=== PATIENT | male | born 1970 | race Caucasian/White ===

== ENCOUNTER 2018-04-23 21:10 | Observation (INO) ==
[2018-04-23 21:58] LABS: Bilirubin,Urine Moderate (Negative); Blood,Urine Negative (Negative); Clarity,Urine Clear (Clear); Color,Urine Yellow (Yellow); Glucose,Urine (UA) Normal (Normal); Ketones,Urine Negative (Negative); Leukocyte Esterase,Urine Small (Negative); Nitrite,Urine Negative (Negative); PH,Urine 5.5 pH Units (5.0-8.0); Protein,Urine Trace mg/dL (Neg-Trace); Specific Gravity,Urine 1.024 (1.010-1.025); Urobilinogen,Urine Normal (Normal)
[2018-04-23 22:00] LABS: Bacteria,Urine None Seen per hpf (None-Few); Hyaline Casts,Urine None Seen per lpf (None-Few); Squamous Epithelial Cell,Urine Many per lpf (None-Few)
[2018-04-23 22:11] LABS: Basophils # 0.1 K/mcL (0.0-0.2); Basophils % 0.6 %; Eosinophils # 0.2 K/mcL (0.0-0.6); Eosinophils % 2.1 %; Hematocrit 42.2 % (37.5-50.1); Hemoglobin 14.3 g/dL (12.9-16.9); Immature Granulocytes % 0.3 % (0-4); Lymphocytes # 3.1 K/mcL (0.6-4.6); Lymphocytes % 31.8 %; Mean Corpuscular HGB Conc 33.9 g/dL (31.6-35.5); Mean Corpuscular Volume 94.4 fL (83.0-100.0); Mean Platelet Volume 11.2 fL (9.4-12.4); Monocytes # 0.8 K/mcL (0.0-1.3); Monocytes % 8.3 %; Neutrophils # 5.6 K/mcL (1.6-8.9); Platelet Count 282 K/mcL (140-400); Red Blood Count 4.47 M/mcL (4.19-5.50); Red Cell Distribution Width 11.8 % (11.5-14.5); Segmented Neutrophils % 56.9 %
[2018-04-23 22:33] LABS: BUN/Creatinine Ratio 23 (6-26); Blood Urea Nitrogen 26 mg/dL (6-20); Calcium 9.6 mg/dL (8.6-10.3); Carbon Dioxide 28 mEq/L (23-29); Chloride 102 mEq/L (98-107); Glucose 118 mg/dL (70-105); Osmolality,Calculated 298 (280-300); Potassium 4.1 mEq/L (3.5-5.1); Sodium 141 mEq/L (136-145); eGFR For African Americans > 60 (> 60); eGFR For Non-African Americans > 60 (> 60)
[2018-04-23] MEDS ORDERED: Ondansetron 4 MG/2 ML VIAL IVP ONE (22:35)
[2018-04-23] MEDS ORDERED: Ketorolac 15 MG/ML VIAL IVP ONE (22:35)
--- NOTE | 2018-04-23 22:37 | Emergency Department Note ---
Disposition Clinical Impression: Calculus of kidney, Ureterolithiasis, Intractable pain Disposition: Admitted As Inpatient Condition: Fair Referrals: Fernando Lozano MD [Primary Care Provider] - Forms: ED Satisfaction Letter, Work/School Release Time of Disposition: 00:36 Abdominal Pain HPI - General Chief Complaint: ED Abdominal Pain Stated Complaint: kidney stones Time Seen by Provider: 04/23/18 21:50 Source: patient Mode of arrival: ambulatory Limitations: no limitations Nursing Notes Reviewed: Yes Vital Signs Reviewed: Yes - History of Present Illness HPI Narrative: Patient presents to the ED if the chief complaint of kidney stone pain. States that he has a known left kidney stone that is 6 mm and another one that is 12 mm. He is scheduled to have a nephrostomy tube placed on the by Dr. Cade. States that the pain started up again about 3 days ago and has been uncontrolled. Denies any fever, chills, chest pain, shortness of breath, other abdominal pain or diarrhea. Said some nausea and vomiting. States the pain is in left flank and radiates to his left lower quadrant. Also states is been difficult for him to urinate. Pain Scale: 7 - Related Data Home Medications Medication Instructions Recorded Confirmed Omeprazole [PriLOSEC] 20 mg PO DAILY 09/20/16 03/19/18 Escitalopram [Lexapro] 10 mg PO DAILY 01/14/17 03/19/18 Mesalamine [Apriso] 1.5 gm PO QAM 01/14/17 03/19/18 Potassium Citrate [Urocit-K] 10 meq PO TID 01/14/17 03/19/18 Alendronate Sodium [Fosamax] 70 mg PO SA 02/06/17 03/19/18 Calcium Carbonate/Vitamin D3 1 each PO DAILY 02/06/17 03/19/18 [Caltrate 600 + D Soft Chew Tab] Fluticasone Propionate Nasal 1 spray NS BID 02/06/17 03/19/18 [Flonase] Previous Rx's Medication Instructions Recorded HYDROcodone/Acet 5/325 mg [[place] 1 tab PO Q6H PRN 5 Days #15 tab 02/28/18 5-325 mg] Ibuprofen 800 mg PO TID PRN #15 tablet 02/28/18 Ondansetron ODT [Zofran ODT] 4 mg SL Q6HR #10 tab.rapdis 02/28/18 Ondansetron ODT [Zofran ODT] 4 mg SL Q6HR PRN #20 tab.rapdis 03/19/18 Oxycodone HCl/Acetaminophen 1 each PO BID 5 Days #10 tablet 03/19/18 [Percocet 10-325 mg Tablet] Allergies Allergy/AdvReac Type Severity Reaction Status Date / Time No Known Allergies Allergy Verified 04/04/18 11:24 Review of Systems: As reviewed in the HPI. All other systems reviewed are negative or normal. Abdominal Pain PMH - Past Medical History Medical history: Reports: non-contributory Male Surgical History: Reports: other Psychiatric history: Reports: anxiety, depression - Social History Smoking status: Never smoker Alcohol use: Reports: none Drug use: Reports: none Physical Exam - General Limitations: no limitations General appearance: alert, in no apparent distress - Head Head exam: atraumatic, normocephalic, normal inspection - ENT ENT exam: normal exam, normal oropharynx, mucous membranes moist - Respiratory Respiratory exam: Present: normal lung sounds bilaterally - Cardiovascular Cardiovascular exam: Present: regular rate, normal rhythm, normal heart sounds - Abdominal Exam Abdominal exam: Present: soft, Non-Tender. Absent: tenderness, distention, guarding, rebound, rigidity - Extremities Exam Extremities exam: Present: normal inspection, full ROM, normal capillary refill. Absent: tenderness, pedal edema - Back Exam Back exam: Present: normal inspection, full ROM, CVA tenderness (L). Absent: tenderness - Neurological Exam Neurological exam: Present: alert, oriented X3 - Psychiatric Psychiatric exam: Present: anxious - Skin Skin exam: Present: warm, dry, intact, normal color Course Course Narrative: Patient presenting with known kidney stone. Patient states he has to kidney stone 6 mm and 12 mm. I do not see any evidence of the larger one on his previous imaging and we will go ahead and get his CT and labs. I will also medicate with Toradol. - Reevaluation(s) Reevaluation #1: Patient's pain has been untouched. Will medicate with Dilaudid. Reevaluation #2: Dilaudid seemed to have helped slightly but does not take away his pain. I spoke with on-call urologist, Dr. Love. The patient's story is quite strange , as his previous CTs have not indicated any stones over 6 mm. I did go back to his previous visits and he had a KUB that showed a 1.2 cm calcification overlying the left flank. It was assumed to be from nephrolithiasis. However, on both of his CT images there is no evidence of this large of a stone. Patient was under the assumption that he was going to have a stent placed and possibly an open removal of the stone, as they were concerned that it could potentially block his kidney. Patient has been urinating and there is mild to moderate hydroureter ureter nephrosis. Patient likely just needs a ureteral stent placed to resolve the chronic 6 mm stone. The stone was previously seen in the proximal left ureter and now is at the acetabular roof, so has been migrating down, but just very slowly. We will admit to urology for pain control and likely stent placement in the morning. We were unable to review the office notes from Dr. Cade , so we are not sure if we are missing some other part of the story, however, the patient appears clinically stable, has normal renal function, and is still making urine. We will attempt to keep his pain under control until he can get definitive treatment and evaluation by Dr. Love. Vital Signs Temperature 98.3 F 04/23/18 21:27 Pulse Rate 99 04/23/18 21:27 Respiratory Rate 20 04/23/18 21:27 Blood Pressure 132/83 04/23/18 21:27 O2 Sat by Pulse Oximetry 99 04/23/18 21:27 Temperature 98.3 F 04/23/18 22:15 Pulse Rate 99 04/23/18 22:15 Respiratory Rate 20 04/23/18 22:15 Blood Pressure 132/83 04/23/18 22:15 O2 Sat by Pulse Oximetry 99 04/23/18 22:15 Oxygen Delivery Oxygen Delivery Room Air Abdominal Pain - Lab Data Result diagrams: 04/23/18 21:53 04/23/18 21:53 Lab Results 04/23/18 04/23/18 04/23/18 Range/Units 21:20 21:53 21:53 WBC 9.9 (4.3-11.1) K/mcL RBC 4.47 (4.19-5.50) M/mcL Hgb 14.3 (12.9-16.9) g/dL Hct 42.2 (37.5-50.1) % MCV 94.4 (83.0-100.0) fL MCH 32.0 (28.0-33.3) pg MCHC 33.9 (31.6-35.5) g/dL RDW 11.8 (11.5-14.5) % Plt Count 282 (140-400) K/mcL MPV 11.2 (9.4-12.4) fL Immature Gran % 0.3 (0-4) % Seg Neutrophils % 56.9 % Lymphocytes % 31.8 % Monocytes % 8.3 % Eosinophils % 2.1 % Basophils % 0.6 % Neutrophils # 5.6 (1.6-8.9) K/mcL Lymphocytes # 3.1 (0.6-4.6) K/mcL Monocytes # 0.8 (0.0-1.3) K/mcL Eosinophils # 0.2 (0.0-0.6) K/mcL Basophils # 0.1 (0.0-0.2) K/mcL Sodium 141 (136-145) mEq/L Potassium 4.1 (3.5-5.1) mEq/L Chloride 102 (98-107) mEq/L Carbon Dioxide 28 (23-29) mEq/L BUN 26 H (6-20) mg/dL Creatinine 1.12 (0.70-1.30) mg/dL Est GFR ( Amer) > 60 (> 60) Est GFR (Non-Af Amer) > 60 (> 60) BUN/Creatinine Ratio 23 (6-26) Glucose 118 H (70-105) mg/dL Calculated Osmolality 298 (280-300) Calcium 9.6 (8.6-10.3) mg/dL Urine Color Yellow (Yellow) Urine Clarity Clear (Clear) Urine pH 5.5 (5.0-8.0) pH Units Ur Specific [place] 1.024 (1.010-1.025) Urine Protein Trace (Neg-Trace) mg/dL Urine Glucose (UA) Normal (Normal) mg/dL Urine Ketones Negative (Negative) mg/dL Urine Blood Negative (Negative) Urine Nitrite Negative (Negative) Urine Bilirubin Moderate H (Negative) Urine Urobilinogen Normal (Normal) mg/dL Ur Leukocyte Esterase Small H (Negative) Urine Microscopic RBC 5-15 H (0-3) per hpf Urine Microscopic WBC 5-15 H (0-3) per hpf Ur Squamous Epith Cells Many H (None-Few) per lpf Urine Bacteria None Seen (None-Few) per hpf Hyaline Casts None Seen (None-Few) per lpf Ur Culture Indicated? NO. A (NO)
[2018-04-23] MEDS: 0.9 % Sodium Chloride 1,000 ML IVC SCH (22:53)
--- NOTE | 2018-04-23 23:54 | Emergency Department Note ---
Disposition Clinical Impression: Ureterolithiasis Disposition: Admitted As Inpatient Condition: Fair Referrals: Fernando Lozano MD [Partnered Physician] - Forms: ED Satisfaction Letter, Work/School Release Abdominal Pain HPI - General Chief Complaint: ED Abdominal Pain Stated Complaint: kidney stones Time Seen by Provider: 04/23/18 21:50 Source: patient Mode of arrival: ambulatory Limitations: no limitations Nursing Notes Reviewed: Yes Vital Signs Reviewed: Yes - History of Present Illness Pain Scale: 7 - Related Data Home Medications Medication Instructions Recorded Confirmed Omeprazole [PriLOSEC] 20 mg PO DAILY 09/20/16 03/19/18 Escitalopram [Lexapro] 10 mg PO DAILY 01/14/17 03/19/18 Mesalamine [Apriso] 1.5 gm PO QAM 01/14/17 03/19/18 Potassium Citrate [Urocit-K] 10 meq PO TID 01/14/17 03/19/18 Alendronate Sodium [Fosamax] 70 mg PO SA 02/06/17 03/19/18 Calcium Carbonate/Vitamin D3 1 each PO DAILY 02/06/17 03/19/18 [Caltrate 600 + D Soft Chew Tab] Fluticasone Propionate Nasal 1 spray NS BID 02/06/17 03/19/18 [Flonase] Previous Rx's Medication Instructions Recorded HYDROcodone/Acet 5/325 mg [[place] 1 tab PO Q6H PRN 5 Days #15 tab 02/28/18 5-325 mg] Ibuprofen 800 mg PO TID PRN #15 tablet 02/28/18 Ondansetron ODT [Zofran ODT] 4 mg SL Q6HR #10 tab.rapdis 02/28/18 Ondansetron ODT [Zofran ODT] 4 mg SL Q6HR PRN #20 tab.rapdis 03/19/18 Oxycodone HCl/Acetaminophen 1 each PO BID 5 Days #10 tablet 03/19/18 [Percocet 10-325 mg Tablet] Allergies Allergy/AdvReac Type Severity Reaction Status Date / Time No Known Allergies Allergy Verified 04/04/18 11:24 Abdominal Pain PMH - Past Medical History Medical history: Reports: non-contributory Male Surgical History: Reports: other Psychiatric history: Reports: anxiety, depression - Social History Smoking status: Never smoker Alcohol use: Reports: none Drug use: Reports: none Physical Exam - General Limitations: no limitations General appearance: alert, in no apparent distress Course Vital Signs Temperature 98.3 F 04/23/18 21:27 Pulse Rate 99 04/23/18 21:27 Respiratory Rate 20 04/23/18 21:27 Blood Pressure 132/83 04/23/18 21:27 O2 Sat by Pulse Oximetry 99 04/23/18 21:27 Temperature 98.3 F 04/23/18 22:15 Pulse Rate 99 04/23/18 22:15 Respiratory Rate 20 04/23/18 22:15 Blood Pressure 132/83 04/23/18 22:15 O2 Sat by Pulse Oximetry 99 04/23/18 22:15 Oxygen Delivery Oxygen Delivery Room Air Abdominal Pain - Lab Data Result diagrams: 04/23/18 21:53 04/23/18 21:53 Lab Results 04/23/18 04/23/18 04/23/18 Range/Units 21:20 21:53 21:53 WBC 9.9 (4.3-11.1) K/mcL RBC 4.47 (4.19-5.50) M/mcL Hgb 14.3 (12.9-16.9) g/dL Hct 42.2 (37.5-50.1) % MCV 94.4 (83.0-100.0) fL MCH 32.0 (28.0-33.3) pg MCHC 33.9 (31.6-35.5) g/dL RDW 11.8 (11.5-14.5) % Plt Count 282 (140-400) K/mcL MPV 11.2 (9.4-12.4) fL Immature Gran % 0.3 (0-4) % Seg Neutrophils % 56.9 % Lymphocytes % 31.8 % Monocytes % 8.3 % Eosinophils % 2.1 % Basophils % 0.6 % Neutrophils # 5.6 (1.6-8.9) K/mcL Lymphocytes # 3.1 (0.6-4.6) K/mcL Monocytes # 0.8 (0.0-1.3) K/mcL Eosinophils # 0.2 (0.0-0.6) K/mcL Basophils # 0.1 (0.0-0.2) K/mcL Sodium 141 (136-145) mEq/L Potassium 4.1 (3.5-5.1) mEq/L Chloride 102 (98-107) mEq/L Carbon Dioxide 28 (23-29) mEq/L BUN 26 H (6-20) mg/dL Creatinine 1.12 (0.70-1.30) mg/dL Est GFR ( Amer) > 60 (> 60) Est GFR (Non-Af Amer) > 60 (> 60) BUN/Creatinine Ratio 23 (6-26) Glucose 118 H (70-105) mg/dL Calculated Osmolality 298 (280-300) Calcium 9.6 (8.6-10.3) mg/dL Urine Color Yellow (Yellow) Urine Clarity Clear (Clear) Urine pH 5.5 (5.0-8.0) pH Units Ur Specific [place] 1.024 (1.010-1.025) Urine Protein Trace (Neg-Trace) mg/dL Urine Glucose (UA) Normal (Normal) mg/dL Urine Ketones Negative (Negative) mg/dL Urine Blood Negative (Negative) Urine Nitrite Negative (Negative) Urine Bilirubin Moderate H (Negative) Urine Urobilinogen Normal (Normal) mg/dL Ur Leukocyte Esterase Small H (Negative) Urine Microscopic RBC 5-15 H (0-3) per hpf Urine Microscopic WBC 5-15 H (0-3) per hpf Ur Squamous Epith Cells Many H (None-Few) per lpf Urine Bacteria None Seen (None-Few) per hpf Hyaline Casts None Seen (None-Few) per lpf Ur Culture Indicated? NO. A (NO) Attestation Statement - Attestation Attestation: I, Curry Marques, examined this patient and my medical decision-making was reviewed with the UI ENGINEER/PA/Advanced Practice Nurse/Resident Physician. I agree with the documented findings, disposition and treatment plan as described except to the extent set forth below. 47-year-old male presents emergency Department with concerns of left flank pain. Patient states he has a ureterolithiasis which is scheduled for surgery on May 02 however he states he has spent the last 2 days in significant pain. Patient follows Dr. Cade for his urologic care. Patient denies fever, chills, diarrhea, chest pain, shortness of breath. Patient has tenderness to palpation of the left lower and left upper quadrants. He had a CT which shows an essentially unchanged 6 mm stone with moderate hydronephrosis. Urinalysis is negative for urinary tract infection. Patient pain continued after medication in the emergency department. This is his third visit for urolithiasis. Resident spoke with the urologist, Dr. Love regarding the patient's case and presentation. Patient will be admitted to the hospital for further care and evaluation.
[2018-04-24] MEDS ORDERED: *HR* HYDROmorphone (PF) 1 MG/ML SYRINGE IVP ONE (00:02)
[2018-04-24] MEDS: 0.9 % Sodium Chloride 1,000 ML IVC SCH ×4 (00:49→20:00)
[2018-04-24] MEDS ORDERED: *HR* Belladonna Alkaloids/Opium 30 MG RECTAL SUPPOSITORY RC PRN (01:48)
[2018-04-24] MEDS ORDERED: Ondansetron 4 MG/2 ML VIAL IVP PRN (01:48)
[2018-04-24] MEDS ORDERED: Naloxone 0.4 MG/ML INJ IVP PRN (01:48)
[2018-04-24] MEDS ORDERED: OXYCODONE Oral CONC 10 MG/0.5 ML ORAL.SYG SL PRN ×2 (01:48)
[2018-04-24] MEDS ORDERED: *HR* Promethazine 25 MG/ML VIAL IVP PRN ×2 (01:48→18:00)
[2018-04-24] MEDS ORDERED: Ketorolac 15 MG/ML VIAL IVP PRN (01:48)
[2018-04-24] MEDS: *HR* HYDROcodone/Acet 5/325 mg TABLET PO PRN ×4 (02:23→23:27)
--- NOTE | 2018-04-24 07:12 | Urology History & Physical ---
Date of Encounter: 04/24/18 Time of Encounter: 07:10 Assessment and Plan (1) Intractable pain Current Visit: Yes Status: Acute Improved this morning. Has not passed stone (2) Ureterolithiasis Current Visit: Yes Status: Acute I discussed with the patient 2 options now that he is admitted to the hospital. The first is to proceed with a ureteroscopic stone extraction which would require stent placement. The second would be nephrostomy tube placement with a staged PCNL as an outpatient with Dr. Cade. He opts for the stone extraction and stent placement. He has had this procedure done in the past. He understands the procedure and has no questions. History of Present Illness Chief complaint: flank pain HPI: Mr. German is a 47 year old male with extensive history of kidney stones. 6 mm left distal ureteral stone. Third emergency room visit because of pain. Dr. Cade had planned a PCNL to remove the ureteral calculi and a renal calculi. This was planned in approximately 1 week. Patient states the pain is been too severe to wait until that day. No fever Past Med Surg Social Fam HX - Past Medical History Medical history: kidney stones, other Additional medical history: chrons Psychiatric history: anxiety, depression - Past Surgical History Surgical History: other Additional surgical history: kidney stents. fistulas repaired - Social History Smoking Status: Never smoker Smokeless Tobacco Status: No Alcohol use: none Drug use: none Medications and Allergies Omeprazole [PriLOSEC] 20 mg PO DAILY 09/20/16 [History] Escitalopram [Lexapro] 10 mg PO DAILY 01/14/17 [History] Mesalamine [Apriso] 1.5 gm PO QAM 01/14/17 [History] Potassium Citrate [Urocit-K] 10 meq PO TID 01/14/17 [History] Calcium Carbonate/Vitamin D3 [Caltrate 600 + D Soft Chew Tab] 1 each PO DAILY [History] Fluticasone Propionate Nasal [Flonase] 1 spray NS BID 02/06/17 [History] Pnv with Ca#74/Iron/Folic Acid [Vol-Plus Tablet] 1 tab PO DAILY 04/24/18 [ History] 3 Allergy/AdvReac Type Severity Reaction Status Date / Time No Known Allergies Allergy Verified 04/04/18 11:24 Review of Systems - Constitutional no chills, no fever(s) - Cardiovascular no chest pain Exam Initial Vital Signs Temp Pulse Resp BP Pulse Ox 98.3 F 99 20 132/83 99 04/23/18 21:27 04/23/18 21:27 04/23/18 21:27 04/23/18 21:27 04/23/18 21:27 - General physical appearance Present: well developed, no distress - Eyes Present: PERRL - ENT Present: normal nares - Neck Present: no masses - Respiratory Present: normal respiratory effort - Cardiovascular Cardiovascular exam IM: RRR - Abdomen Abdomen: Present: soft - Neurologic Present: normal coordination. Absent: disoriented, confused Urology Results - Labs 04/23/18 21:53 04/23/18 21:53 Abnormal lab results BUN 26 mg/dL (6-20) H 04/23/18 21:53 Glucose 118 mg/dL (70-105) H 04/23/18 21:53 Urine Bilirubin Moderate (Negative) H 04/23/18 21:20 Ur Leukocyte Esterase Small (Negative) H 04/23/18 21:20 Urine Microscopic RBC 5-15 per hpf (0-3) H 04/23/18 21:20 Urine Microscopic WBC 5-15 per hpf (0-3) H 04/23/18 21:20 Ur Squamous Epith Cells Many per lpf (None-Few) H 04/23/18 21:20 Ur Culture Indicated? NO. (NO) A 04/23/18 21:20 All other labs normal.
[2018-04-24] MEDS ORDERED: cefTRIAXone 1,000 MG in Water for inj. (sterile) 20 ML 10 ML IVP SCH (09:00)
[2018-04-24] MEDS ORDERED: Isovue-300 50 ML VIAL IVP ONE (16:07)
--- NOTE | 2018-04-24 17:09 | Anesthesia Evaluation PreOp ---
Date of Encounter: 04/24/18 Time of Encounter: 17:00 - Past History Planned Operation: Left USE Cardiac History: Denies any Significant Hx Pulmonary History: Denies Any Significant HX WAIST FITTER History: Denies Any Significant HX Other Medical History: Other (Crohn's) Anesthesia History: No Prior Anesthetic Complications Alcohol Use: none Drug use: none Medications and Allergies Omeprazole [PriLOSEC] 20 mg PO DAILY 09/20/16 [History] Escitalopram [Lexapro] 10 mg PO DAILY 01/14/17 [History] Mesalamine [Apriso] 1.5 gm PO QAM 01/14/17 [History] Potassium Citrate [Urocit-K] 10 meq PO TID 01/14/17 [History] Calcium Carbonate/Vitamin D3 [Caltrate 600 + D Soft Chew Tab] 1 each PO DAILY [History] Fluticasone Propionate Nasal [Flonase] 1 spray NS BID 02/06/17 [History] Pnv with Ca#74/Iron/Folic Acid [Vol-Plus Tablet] 1 tab PO DAILY 04/24/18 [ History] 3 Allergy/AdvReac Type Severity Reaction Status Date / Time No Known Allergies Allergy Verified 04/04/18 11:24 - Meds/Allergy Pre-op Review Medications Reviewed: Yes Allergies Reviewed: Yes Beta Blockers on Current Med List: No Anesthesia Results - Labs 04/23/18 21:53 04/23/18 21:53 Laboratory Tests 04/04/18 04/23/18 04/23/18 11:30 21:53 21:53 Hgb 14.3 Hct 42.2 Plt Count 282 PT 12.6 H INR 1.2 APTT 37.5 H Sodium 141 Potassium 4.1 BUN 26 H Creatinine 1.12 Anesthesia Exam Vital Signs/O2 Sat/Glucose, Most Current Temp Pulse Resp BP Pulse Ox 04/24/18 16:16 97.6 F 87 20 145/88 100 Height: 5'8 Weight: 237 lbs NPO (# of Hours): MN Pain Scale: 0 - HEENT Pupil (Motor): Pupils equal, EOMI Mallampati: III Teeth: Normal Oral Opening: Less than or equal to 3 - WAIST FITTER LOC: Oriented WAIST FITTER Motor: Normal RUE, Normal LUE, Normal RLE, Normal LLE, Normal Face WAIST FITTER Sensory: Normal: RUE, LUE, RLE, LLE, Face - Cardiac Rhythm: Regular Murmur: None JVD: No Carotid Bruit: No - Pulmonary Breath Sounds: bilateral Clear Respiratory Effort: Symmetrical Anesthesia Assess/Plan ASA Score: 2 Modified Yusra Scale for Level of Consciousness: Cooperative, oriented, and tranquil Anesthetic Plan: General Monitoring Plan: Standard Monitors Recovery Plan: PACU (Discussed GA, agrees to proceed)
[2018-04-24] MEDS ORDERED: *HR* Propofol 200 MG/20 ML VIAL IVP ONE ×2 (17:51)
[2018-04-24] MEDS ORDERED: Ondansetron 4 MG/2 ML VIAL ONE (17:51)
[2018-04-24] MEDS ORDERED: Dexamethasone 4 MG/ML VIAL ONE (17:51)
[2018-04-24] MEDS ORDERED: *HR* FentaNYL (PF) 100 MCG/2 ML VIAL ONE (17:51)
[2018-04-24] MEDS ORDERED: Lidocaine -MPF 2% 2 ML VIAL ONE (17:51)
[2018-04-24] MEDS ORDERED: *HR* Midazolam HCl 2 MG/2 ML VIAL ONE (17:51)
[2018-04-24] MEDS ORDERED: *HR* Labetalol 20 MG/4 ML SYRINGE IVP PRN (18:00)
[2018-04-24] MEDS ORDERED: MORPHINE SUL Oral CONC 10 MG/0.5 ML ORAL.SYG SL PRN (18:00)
[2018-04-24] MEDS ORDERED: *HR* FentaNYL (PF) 100 MCG/2 ML VIAL IVP PRN (18:00)
[2018-04-24] MEDS ORDERED: *HR* OxyCODONE Immed Rel 5 MG TABLET PO PRN (18:00)
[2018-04-24] MEDS ORDERED: Ondansetron 4 MG/2 ML VIAL IVP ONE (18:00)
[2018-04-24] MEDS ORDERED: *HR* Meperidine 25 MG/ML SYRINGE IVP PRN (18:00)
[2018-04-24] MEDS ORDERED: *HR* PHENYLEPHRINE 1,000 MCG/10 ML SYRINGE IVP ONE (18:04)
--- NOTE | 2018-04-24 18:27 | Operative Note ---
Date of procedure: 04/24/18 Pre-op diagnosis: left 6 mm distal ureteral stone Post-op diagnosis: same Procedure: left ureteroscopic stone extraction with holmium laser litho left retrograde pyelogram left JJ stent Anesthesia: GETA Surgeon: Benjamin Love Was there an assistant offset press operator present: No Estimated blood loss (cc): 0 Specimen: stone Condition: stable Disposition: PACU Procedure in Detail: PROCEDURE IN DETAIL: Patient was taken back to the operating room, positioned supine on the operating table. Anesthesia was applied without complication. They were moved into dorsal lithotomy. Careful attention was maintained to cushion all pressure points for patient's safety. They were prepped and draped in sterile fashion. Time-out was performed with the proper patient and procedure. A 21-Afghan rigid cystoscope was inserted into the bladder without difficulty. Systematic examination of bladder revealed no abnormalities. The left ureteral orifice was cannulated using a 5-Afghan ureteral Catheter and a retrograde pyelogram was performed using Isovue. A filling defect was identified which corresponded to the stone. At that point, a zip wire was placed through the 5-Afghan and confirmed in the renal pelvis with fluoroscopy. An 8-10 dilator was then placed over the zip wire to passively dilate the ureteral orifice. A semi-rigid ureteroscope was carefully inserted into the bladder and guided into the ureteral oriface. At that point, the stone was encountered and I felt that it required fragmentation for safe extraction. A 200 micron holmium laser fiber on a setting of 8 and 800 was used to fragment the stone into multiple pieces. The fragments were individually basketed out of the ureter with a 1.9 tipless basket. All stone in the ureter was removed. A 4.8 x 26 ureteral stent was placed over the zip wire under fluoroscopy without complication. The bladder was drained along with the stone fragments. they were not sent for analysis. The string was left attached to the stent and secured to the patient for easy removal in approximately 72 hours
--- NOTE | 2018-04-24 18:31 | Event Note ---
Date of Encounter: 04/24/18 Time of Encounter: 18:28 stone was successfully removed will watch patient overnight to verify pt 's pain is controlled and able to urinate will likely DC in AM and provide pain meds. no ABX needed at discharge ok for stent removal at home (pt has string) in 3-[address] Cade. office will arrange followup. unsure about status of planned surgery by Rayo on 05/02. will discuss with Rayo.
[2018-04-25] MEDS: 0.9 % Sodium Chloride 1,000 ML IVC SCH (06:33)
--- NOTE | 2018-04-25 06:54 | Electrocardiograph Report ---
[place] [id number] Test Date: 2018-04-24 Pat Name: Catarino German Department: 113 Room: 3B Gender: M [employer]ter: : 1970 Requested By: Benjamin Love Order Number: [id number] Reading MD: Colton Silva Measurements Intervals [place] Rate: 76 P: 26 [place]: 163 QRS: 6 QRSD: 95 T: 21 QT: 388 QTc: 418 Interpretive Statements SINUS RHYTHM Electronically Signed On 04-25-2018 6:52:39 EDT by Colton Silva
[2018-04-25 07:03] VITALS: BP 114/73
[2018-04-25] MEDS ORDERED: OXYCODONE Oral CONC 10 MG/0.5 ML ORAL.SYG SL PRN ×2 (07:26)
[2018-04-25] MEDS ORDERED: *HR* Promethazine 25 MG/ML VIAL IVP PRN (07:26)
[2018-04-25] MEDS ORDERED: Naloxone 0.4 MG/ML INJ IVP PRN (07:26)
[2018-04-25] MEDS ORDERED: *HR* HYDROcodone/Acet 5/325 mg TABLET PO PRN (07:26)
[2018-04-25] MEDS ORDERED: Ketorolac 15 MG/ML VIAL IVP PRN (07:26)
[2018-04-25] MEDS ORDERED: *HR* Belladonna Alkaloids/Opium 30 MG RECTAL SUPPOSITORY RC PRN (07:26)
[2018-04-25] MEDS ORDERED: Ondansetron 4 MG/2 ML VIAL IVP PRN (07:26)
--- NOTE | 2018-04-25 07:48 | Discharge Summary ---
Date of Encounter: 04/25/18 Time of Encounter: 07:53 - Discharge Diagnosis (1) Calculus of kidney Priority: Primary Status: Acute (2) Ureterolithiasis Priority: Primary Status: Acute - Hospital Course Hospital course: Mr. German is a 47 year old male Time spent discussing smoking cessation with patient: 3 to 10 minutes - Time Spent with Patient Total time spent providing and/or coordinating discharge services: Less than 30 minutes Procedures and tests throughout hospitalization: Left ureteral stone extraction with Holmium laser lithotripsy Left Retrograde Pyelogram Left JJ stent placement - Discharge Medications Prescriptions: HYDROcodone/Acet 5/325 mg [[place] 5-325 mg] 1 tab PO Q6HR PRN 4 Days #16 tablet PRN Reason: Moderate Pain Home Medications: Omeprazole [PriLOSEC] 20 mg PO DAILY 09/20/16 [History] Escitalopram [Lexapro] 10 mg PO DAILY 01/14/17 [History] Mesalamine [Apriso] 1.5 gm PO QAM 01/14/17 [History] Potassium Citrate [Urocit-K] 10 meq PO TID 01/14/17 [History] Calcium Carbonate/Vitamin D3 [Caltrate 600 + D Soft Chew Tab] 1 each PO DAILY [History] Fluticasone Propionate Nasal [Flonase] 1 spray NS BID 02/06/17 [History] Pnv with Ca#74/Iron/Folic Acid [Vol-Plus Tablet] 1 tab PO DAILY 04/24/18 [ History] HYDROcodone/Acet 5/325 mg [[place] 5-325 mg] 1 tab PO Q6HR PRN 4 Days #16 tablet 04/25/18 [Rx] Allergies/Adverse Reactions: 3 Allergy/AdvReac Type Severity Reaction Status Date / Time No Known Allergies Allergy Verified 04/04/18 11:24 Date of admission: 04/24/18 01:13 Primary care physician: Fernando Lozano MD Discharging clinician: Nani Castillo Anticipated date of discharge: 04/25/18 Exam Initial Vital Signs Temp Pulse Resp BP Pulse Ox 98.3 F 99 20 132/83 99 04/23/18 21:27 04/23/18 21:27 04/23/18 21:27 04/23/18 21:27 04/23/18 21:27 - General physical appearance Present: well developed, no distress, no pain - Eyes Present: PERRL, normal ocular movement - ENT Present: normal nares. Absent: nasal discharge - Neck Present: no masses, trachea midline - Respiratory Present: normal respiratory effort - Cardiovascular Cardiovascular exam IM: RRR - Abdomen Abdomen: Present: soft, non tender. Absent: distended - Integumentary Present: no rash, no abnormal pigmentation - Neurologic Present: normal coordination - Musculoskeletal Present: other (no pedal edema ) - Patient Status Disposition: Home, Self-Care Condition: Good Functional capacity at discharge: independent ambulation Overall status at discharge: patient is progressing back to baseline - Discharge Instructions Follow Up With: Fernando Lozano MD [Primary Care Provider] - Homar Cade MD [Partnered Physician] - Additional Instructions: Call if fever greater than 101 degrees. May experience blood in the urine and irritating voiding symptoms. Patient may remove his stents 3-4 days postoperatively if visible sting or return to office for removal. Okay to return to work on April 30. Okay to shower. Okay to drive as long as you are no longer taking narcotic pain medicine. - Diet and Activity Activity: increase activity as tolerated Diet: advance to your usual diet
[2018-04-25] MEDS ORDERED: cefTRIAXone 1,000 MG in Water for inj. (sterile) 20 ML 10 ML IVP SCH (09:00)
== END 2018-04-25 11:10 | disposition home or self-care (01) ==
LOC: 3BNU 21:10 → EMEROO 21:10 → 3BNU 04-24 01:27
PROVIDERS: ADMIT Urology; ATTEND Urology